=== PATIENT | male | born 1970 | race Caucasian/White ===

== ENCOUNTER 2021-04-08 06:12 | Emergency (ER) | payer BC ==
[~2021-04-08] VITALS: Ht 193 cm; Wt 140.2 kg
== END 2021-04-08 09:00 | disposition home or self-care (01) ==
LOC: ER1 06:12
DX: U07.1 COVID-19 (principal); I10 Essential (primary) hypertension; Z79.899 Other long term (current) drug therapy
CPT/HCPCS: 99283; M0245